=== PATIENT | female | born 1950 | race Two or more races ===

== ENCOUNTER 2020-10-10 08:00 | Day surgery (SDC) | payer OTHER | END 2020-10-10 13:05 | disposition home or self-care (01) | LOC: AMB-ENDOS 08:00 | PROVIDERS: ATTEND Colon & Rectal Surgery | DX: D12.3 Benign neoplasm of transverse colon (principal); K64.8 Other hemorrhoids; Z12.11 Encounter for screening for malignant neoplasm of colon; Z20.828 Contact with and (suspected) exposure to other viral communicable diseases ==

== ENCOUNTER 2022-02-19 10:15 | Day surgery (SDC) | payer OTHER | END 2022-02-19 17:50 | disposition home or self-care (01) | LOC: AMB-ENDOS 10:15 | PROVIDERS: ATTEND Colon & Rectal Surgery | DX: D12.5 Benign neoplasm of sigmoid colon (principal); Z85.038 Personal history of other malignant neoplasm of large intestine; Z20.822 Contact with and (suspected) exposure to COVID-19; K64.4 Residual hemorrhoidal skin tags; I10 Essential (primary) hypertension; E11.9 Type 2 diabetes mellitus without complications; Z79.84 Long term (current) use of oral hypoglycemic drugs ==